=== PATIENT | male | born 1975 | race Caucasian/White ===

== ENCOUNTER → 2020-02-10 10:07 | Outpatient (REF) | payer OTHER, SELFPAY ==
--- NOTE | 2020-02-10 10:10 | ECG_ITS ---
Hook-up date: 2020-02-10 11:01:00 Duration: 47:59:00 Test Indications: BRADYCARDIA Medications: 95356 QRS complexes 5 Ventricular ectopics which represent <1 % of total QRS comp. 37 Supraventricular ectopics which represent <1 % of total QRS comp. * Paced QRS complexs which represent % of total QRS comp. VENTRICULAR ECTOPY 5 Isolated 0 Bigeminal Cycles 0 Couplets 0 Runs 0 Beats in Runs * Beats LONGEST at * BPM at :: -- * Beats FASTEST at * BPM at :: -- SUPRAVENTRICULAR ECTOPY 13 Isolated 4 Couplets 1 Runs 16 Beats in Runs 16 Beats LONGEST at 83 BPM at 07:35:14 2020-02-11 16 Beats FASTEST at 83 BPM at 07:35:14 2020-02-11 HEART RATES 32 MIN at 14:43:25 2020-02-10 43 AVG 90 MAX at 16:44:43 2020-02-10 LONGEST RR 2.1200 secs at 08:15:30 2020-02-11 S-T LEVELS Channel 1 - 128 mm at 11:01:00 2020-02-10 - 128 mm at 11:01:00 2020-02-10 Channel 2 - 128 mm at 11:01:00 2020-02-10 - 128 mm at 11:01:00 2020-02-10 Channel 3 - 128 mm at 03:02:01 -- - 128 mm at 03:02:01 Underlying rhythm is sinus bradycardia; Average ventricular rate 43/min; range 32-90/min; About 97% of the time, ventricular rate >100/mi; Occasional supraventricular/ventricular ectopy, but very low burden; Patient did not report any symptoms in the diary Referred By: Mj Jarrell Overread By: MAGED LEZAMA
--- NOTE | 2020-02-10 10:10 | CA_ITS ---
Transthoracic Echocardiogram Patient (Last, First, Middle): Lucius Pearson, Gender: Male Date of : 1975 Age: 44 Procedure Date: 02/10/2020 Procedure Type: Transthoracic Echocardiogram Location: OP Height: 190.5 cm Weight: 90.72 kg BSA: 2.19 m2 Heart Rate: bpm BP: 104 / 54 mmHg Recycling Operator: Referring MD: Mj Jarrell [facility] Symptoms: R00.1 - Bradycardia, unspecified Study Quality: Good ECG Rhythm: Sinus Conclusions: - The left ventricular systolic function is normal. The visually estimated ejection fraction is between 60-65%. - No obvious valvular pathology seen on this study. Findings Left Ventricle Normal left ventricular cavity size. There is normal left ventricular wall thickness. The left ventricular systolic function is normal. The visually estimated ejection fraction is between 60-65%. There is no evidence of regional wall motion abnormalities. Diastolic function is normal for age. Right Ventricle Normal right ventricular cavity size and systolic function. Atria The left atrium is mildly dilated. The right atrium is normal in size. Aortic Valve There is a normal trileaflet aortic valve. There is no aortic valve stenosis. There is no aortic valve regurgitation. Mitral Valve The mitral valve appears normal. There is trace mitral valve regurgitation. There is no mitral valve stenosis. Pulmonic Valve The pulmonic valve was not well visualized. Tricuspid Valve Normal tricuspid valve structure. There is trace tricuspid valve regurgitation. The pulmonary artery systolic pressure is normal. Great Vessels The aortic annulus, sinuses of valsalva, and asc aorta are normal in size. Venous The inferior vena cava is normal in size and collapses greater than 50% with inspiration. Pericardium/Pleural There is no evidence of pericardial effusion. Prior Study Comparison No prior study available for comparison. Recommendations, Care & Conclusions No obvious valvular pathology seen on this study. Measurements 2D Linear Measurements RVIDd: 3.55 RVIDd Index: 1.62 IVSd: 0.81 0.6-0.9/0.6-1.0 cm LVIDd: 6.45 3.9-5.3/4.2-5.9 cm LVIDd Index: 2.95 2.4-3.2/2.2-3.1 cm/m2 LVIDs: 4.27 2.0-3.6 cm LVPWd: 0.98 0.7-1.1 cm Ao Root: 3.40 2.1-3.5 cm LA Diam: 4.70 2.7-3.8/3.0-4.0 cm LAIDs Index: 2.15 1.5-2.3 cm/m2 LV Mass: 303.21 67-162/88-224 g LV Mass Index: 138.45 43-95/49-115 g/m2 LVOT Diam: 2.30 3.0+(-)1.3 cm 2D Systolic Function EF 4C: 62.90 >55% EF 2C: 64.80 >55% EF BiP: 62.90 >55% Mitral Valve MV Pk E: 0.76 MV PK A: 0.75 MV Decel Time: 300.00 E/A: 1.00 E'Lateral: 14.60 E'Medial: 7.29 E/E' Med: 10.40 E/E' Lat: 5.20 MR Alias Abdon: 0.36 MR RAD: 0.70 Aortic Valve AoV Pk Abdon: 1.57 AoV Mn Abdon: 1.17 AoV VTI: 0.41 AoV Pk Grad: 10.00 Aov Mn Grad: 6.00 [place] Cont.VTI: 2.69 LVOT LVOT Pk Abdon: 1.12 LVOT Mn Abdon: 0.69 LVOT VTI: 0.27 LVOT Pk Grad: 5.00 LVOT Mn Grad: 2.00 LVOT Diam: 2.30 LVOT Area: 4.15 Diastolic Function MV Pk E: 0.76 MV Pk A: 0.75 E/A: 1.00 E'Medial: 7.29 E/E' Med: 10.40 E' Laterial: 14.60 E/E' Lat: 5.20 Tricuspid Valve TR Pk Abdon: 2.62 TR Pk Grad: 27.00 RA Press: 3.00 RVSP: 30.00 Great Vessels Aorta Ao Root-2D: 3.40 2.0-3.7 cm Ao Asc: 3.60 2.1-3.4 cm Ao Arch: 2.00 Updated in Other Vendor System with Status of Final Josiah Avilez MD electronically signed on 02/12/2020 1:45:03 PM with status of Final
== END ==
LOC: HO.CARD 10:07
PROVIDERS: PCP Nurse Practitioner Family; Visit Provider Nurse Practitioner Family
DX: R00.1 Bradycardia, unspecified (principal)
CPT/HCPCS: 93225; 93226; 93306

== ENCOUNTER 2020-03-17 08:01 | Outpatient (REF) | payer OTHER, SELFPAY ==
--- NOTE | 2020-03-17 08:34 | XR_ITS ---
EXAMINATION: XR SHOULDER, LEFT XR SHOULDER, RIGHT CLINICAL INFORMATION: Shoulder pain. COMPARISON: 11/10/2018 TECHNIQUE: 4 views of each shoulder. FINDINGS: Left shoulder: No fracture or dislocation. The glenohumeral joint is well aligned. The joint space is mildly narrowed inferiorly. This is unchanged. The acromioclavicular joint positioning is unchanged from prior. Widening of the joint space is noted, which may be from prior intervention. The visualized lung is clear. The visualized ribs are intact. Right shoulder: No fracture or dislocation. The glenohumeral joint is well aligned with the joint space maintained. The acromioclavicular joint is intact. The visualized lung is clear. The visualized ribs are intact. XR/XR shoulder RT min 2V IMPRESSION: No change from prior. Mild joint space narrowing at the left glenohumeral joint, unchanged. Normal appearance of the right shoulder.
--- NOTE | 2020-03-17 08:34 | XR_ITS ---
EXAMINATION: XR SHOULDER, LEFT XR SHOULDER, RIGHT CLINICAL INFORMATION: Shoulder pain. COMPARISON: 11/10/2018 TECHNIQUE: 4 views of each shoulder. FINDINGS: Left shoulder: No fracture or dislocation. The glenohumeral joint is well aligned. The joint space is mildly narrowed inferiorly. This is unchanged. The acromioclavicular joint positioning is unchanged from prior. Widening of the joint space is noted, which may be from prior intervention. The visualized lung is clear. The visualized ribs are intact. Right shoulder: No fracture or dislocation. The glenohumeral joint is well aligned with the joint space maintained. The acromioclavicular joint is intact. The visualized lung is clear. The visualized ribs are intact. XR/XR shoulder LT min 2V IMPRESSION: No change from prior. Mild joint space narrowing at the left glenohumeral joint, unchanged. Normal appearance of the right shoulder.
[2020-03-17 12:03] LABS: Alanine Aminotransferase 38 U/L (0-40); Albumin Level 4.6 g/dL (3.5-5.0); Alkaline Phosphatase 61 U/L (39-117); Anion Gap 12 (12-20); Aspartate Amino Transferase 56 U/L (5-37); Bilirubin Total 0.8 mg/dL (0.0-1.0); Blood Urea Nitrogen 21 mg/dL (9-16); Calcium 8.9 mg/dL (8.4-10.2); Carbon Dioxide 23 mmol/L (22-29); Chloride 108 mmol/L (96-108); Cholesterol 170 mg/dL; Estimated Glomerular Filt Rate > 60; Glucose Fasting 90 mg/dL (60-99); HDL Cholesterol 59 mg/dL; LDL Cholesterol Calculated 101 mg/dl; Potassium 4.7 mmol/L (3.3-5.1); Sodium 138 mmol/L (135-145); Total Protein 7.3 g/dL (6.5-8.0); Triglycerides 51 mg/dL
[2020-03-17 12:25] LABS: TSH reflex Free T4 1.16 uIU/mL (0.32-4.0)
== END 2020-03-17 08:02 | disposition home or self-care (01) ==
LOC: HO.HMGCX 08:01
PROVIDERS: PCP Nurse Practitioner Family; Visit Provider Nurse Practitioner Family
DX: Z00.00 Encounter for general adult medical examination without abnormal findings (principal); G89.29 Other chronic pain; M25.512 Pain in left shoulder; M25.511 Pain in right shoulder
CPT/HCPCS: 36415; 73030; 80053; 80061; 84443

== ENCOUNTER → 2020-11-14 13:57 | Outpatient (BNVA) | payer OTHER, SELFPAY | PROVIDERS: Visit Provider Orthopaedic Surgery | DX: M67.911 Unspecified disorder of synovium and tendon, right shoulder (principal) | CPT/HCPCS: 99212 ==

== ENCOUNTER 2021-01-18 09:03 | Outpatient (REF) | payer OTHER, SELFPAY ==
[2021-01-18 10:37] LABS: Hematocrit 46.3 % (42.0-52.0); Hemoglobin 15.3 g/dl (14.0-18.0); Mean Corpuscular Hemoglobin 31.7 pg (27.0-33.0); Mean Corpuscular Volume 95.9 fL (80.0-98.0); Mean Platelet Volume 10.6 fL (9.4-12.4); Platelet Count 214 X10*3/uL (160-400); Red Blood Count 4.83 X10*6/uL (4.60-5.80); Red Cell Distribution Width 12.3 % (11.0-16.0); White Blood Count 6.2 X10*3/uL (4.8-10.8)
[2021-01-18 11:06] LABS: Alanine Aminotransferase 13 U/L (0-40); Albumin Level 4.5 g/dL (3.5-5.0); Alkaline Phosphatase 70 U/L (39-117); Anion Gap 12 (12-20); Aspartate Amino Transferase 18 U/L (5-37); Bilirubin Total 0.5 mg/dL (0.0-1.0); Blood Urea Nitrogen 17 mg/dL (9-16); Calcium 9.8 mg/dL (8.4-10.2); Carbon Dioxide 27 mmol/L (22-29); Chloride 108 mmol/L (96-108); Estimated Glomerular Filt Rate > 60; Glucose Random 67 mg/dL (60-115); Potassium 4.5 mmol/L (3.3-5.1); Sodium 142 mmol/L (135-145); Total Protein 7.4 g/dL (6.5-8.0)
[2021-01-18 11:22] LABS: HBc Num1 0.09 S/CO (0.00-0.79); HBsAGNum1 0.23 S/CO (0.00-0.99); Hepatitis B Core Antibody Nonreactive (Nonreactive); Hepatitis B Surface Antigen Negative (Negative); ~HepC Num1 0.11 S/CO (0.00-0.79); ~Hepatitis C Antibody Nonreactive (Nonreactive)
[2021-01-18 12:29] LABS: HBS Num1 > 1000.00 mIU/mL (0-7.99); Hepatitis A Antibody IgM 0.37 Index (0-0.79); ~Hepatitis A Antibody IgM Nonreactive (Nonreactive); ~Hepatitis B Surface Antibody REACTIVE (Nonreactive)
== END 2021-01-18 09:04 | disposition home or self-care (01) ==
LOC: HO.LAB 09:03
PROVIDERS: PCP Nurse Practitioner Family; Referring Provider Nurse Practitioner Family; Visit Provider Nurse Practitioner Family
DX: R74.8 Abnormal levels of other serum enzymes (principal); K62.5 Hemorrhage of anus and rectum; K59.00 Constipation, unspecified; Z12.11 Encounter for screening for malignant neoplasm of colon
CPT/HCPCS: 36415; 80053; 85027; 86704; 86706; 86709; 86803; 87340; 99202

== ENCOUNTER 2021-10-21 12:50 | Outpatient (REF) | payer OTHER, SELFPAY ==
--- NOTE | ~2021-10-21 | XR_ITS ---
EXAMINATION: CHEST 4 VIEWS AND LEFT RIBS 6 VIEWS CLINICAL INFORMATION: Cough, pain status post trauma COMPARISON: None TECHNIQUE: As above FINDINGS: No pneumothorax parenchymal pleural disease. No retrosternal abnormality. Heart and mediastinum normal. Imaging of the left ribs demonstrate no acute displaced fracture definitively. Skinfolds noted. XR/XR ribs LT 2V IMPRESSION: No definite deformity. No infiltrate.
--- NOTE | ~2021-10-21 | XR_ITS ---
EXAMINATION: CHEST 4 VIEWS AND LEFT RIBS 6 VIEWS CLINICAL INFORMATION: Cough, pain status post trauma COMPARISON: None TECHNIQUE: As above FINDINGS: No pneumothorax parenchymal pleural disease. No retrosternal abnormality. Heart and mediastinum normal. Imaging of the left ribs demonstrate no acute displaced fracture definitively. Skinfolds noted. XR/XR chest 2V IMPRESSION: No definite deformity. No infiltrate.
== END 2021-10-21 12:51 | disposition home or self-care (01) ==
LOC: HO.HMGCX 12:50
PROVIDERS: Visit Provider Physician Assistant Medical
DX: R07.89 Other chest pain (principal); R05.9 Cough, unspecified
CPT/HCPCS: 71046; 71100

== ENCOUNTER 2021-10-21 14:50 | Observation (INO) | payer OTHER, SELFPAY ==
--- NOTE | ~2021-10-21 | CT_ITS ---
EXAMINATION: CT ABDOMEN AND PELVIS WITHOUT CONTRAST CLINICAL INFORMATION: Left flank left lower quadrant and hip pain. Rule out abscess. COMPARISON: None TECHNIQUE: Multidetector volumetric imaging was performed from the superior aspect of the liver through the pubic symphysis. Sagittal and coronal reformatted images were obtained on the technologist's workstation. This CT examination was performed using dose optimization techniques as appropriate, variously including the following: *Automated exposure control *Adjustment of mA and/or kV according to patient size (this includes techniques or standardized protocols for targeted exams where dose is matched to indication/reason for exam; i.e. extremities or head) *Use of iterative reconstruction technique DLP: 632 mGy-cm FINDINGS: LUNG BASES: Small sub-4 mm left basilar calcified granuloma. Mild bibasilar subsegmental atelectasis. Small fat-containing right-sided Bochdalek hernia. LIVER, GALLBLADDER, AND BILIARY TREE: 1 cm low-density cyst in the posterior segment right liver lobe. Normal hepatic attenuation. No other liver lesion. No biliary ductal dilation. The gallbladder is unremarkable with no evidence of radiopaque gallstones, gallbladder wall thickening, or obvious pericholecystic inflammatory changes. PANCREAS: Unremarkable. SPLEEN: Unremarkable. ADRENAL GLANDS: Unremarkable. KIDNEYS AND URETERS: The kidneys are normal in size, shape, and attenuation. No hydronephrosis, hydroureter, or calculi seen. No perinephric stranding. BLADDER: Unremarkable. GASTROINTESTINAL TRACT: Moderate amount of formed stool seen throughout the colon. Small hiatal hernia. No dilated bowel loops. No bowel wall thickening. Normal appendix. Inflamed epiploic fat adjacent to the distal sigmoid/proximal rectum on series 3-66 series 5-73 compatible with epiploic appendagitis. No ascites or free air. ABDOMINAL WALL: No significant hernia is appreciated. There is a subcutaneous fluid collection with mild subcutaneous edema along the lateral aspect of the left pelvis measuring approximately 1.7 x 4.3 x 4.3 cm in size. No gas within the collection. Finding seen on axial image 52, coronal image 55. LYMPH NODES: No lymphadenopathy. VASCULAR: Normal caliber abdominal aorta. Mild atherosclerotic vascular calcifications. PELVIC VISCERA: Unremarkable. OSSEOUS STRUCTURES: No acute fracture or suspicious osseous lesion. Multilevel degenerative disc disease most advanced at L4-L5 and T11-T12. CT/CT abdomen pelvis wo IV con IMPRESSION: 1. Subcutaneous fluid collection overlying the left lateral pelvis which may be either sterile or infected and measures 4.3 x 1.7 x 4.3 cm in size. 2. Findings compatible with epiploic appendagitis adjacent to the distal sigmoid colon/proximal rectum. Fleischner guidelines were followed.
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
[2021-10-21 14:53] VITALS: BP 121/61; PULSE 58; RESP 19; TEMP 36.6; O2SAT 98; BMI 25.0
[2021-10-21 19:15] VITALS: BP 129/87; PULSE 49; RESP 16; TEMP 36.2; O2SAT 98
--- NOTE | 2021-10-21 20:59 | ECG_ITS ---
Test Reason : [employer] Blood Pressure : / mmHG Vent. Rate : 043 BPM Atrial Rate : 043 BPM P-R Int : 134 ms QRS Dur : 088 ms QT Int : 452 ms P-R-T Axes : 057 -09 058 degrees QTc Int : 381 ms Marked sinus bradycardia Abnormal ECG No previous ECGs available Referred By: Elina Bramibla Electronically Signed By:JAMIL LIM
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
--- NOTE | 2021-10-21 21:50 | PC.NURSE ---
Assumed care of pt. at 2129. Pt. c/o pain in chest area with worsening immediately following cat scan. Pt. resting on side in bed.
[2021-10-21] MEDS: Sulfamethox/Trimeth 800/160 TABLET 1 TAB PO (21:52)
[2021-10-21 22:21] LABS: MANUAL DIFF FLAG NO
[2021-10-21 22:22] LABS: Basophils Percent Auto 0.3 % (0-2); Eosinophils Absolute Auto 0.2 X10*3/uL (0.0-0.4); Eosinophils Percent Auto 2.8 % (0-4); Hematocrit 40.4 % (42.0-52.0); Imm Gran Abs Auto 0.02 X10*3/uL (0.00-0.03); Imm Gran Pct Auto 0.3 % (0.0-0.4); Lymphocytes Percent Auto 30.7 % (20-40); Mean Corpuscular HGB Conc 34.7 g/dl (31.0-36.0); Mean Corpuscular Hemoglobin 31.5 pg (27.0-33.0); Mean Platelet Volume 9.5 fL (9.4-12.4); Monocytes Absolute Auto 0.4 X10*3/uL (0.1-1.2); Monocytes Percent Auto 6.1 % (2-11); Neutrophils Absolute Auto 3.9 x10*3/uL (2.0-8.3); Neutrophils Percent Auto 59.8 % (45-73); Platelet Count 225 X10*3/uL (160-400); Red Blood Count 4.44 X10*6/uL (4.60-5.80); White Blood Count 6.4 X10*3/uL (4.8-10.8)
[2021-10-21 22:34] LABS: Lactic Acid 0.9 mmol/L (0.5-2.0)
[2021-10-21 22:40] LABS: Alanine Aminotransferase 18 U/L (0-40); Albumin Level 4.5 g/dL (3.5-5.0); Alkaline Phosphatase 83 U/L (39-117); Anion Gap 14 (12-20); Aspartate Amino Transferase 21 U/L (5-37); Bilirubin Direct 0.3 mg/dL (0.0-0.5); Bilirubin Total 0.8 mg/dL (0.0-1.0); Blood Urea Nitrogen 14 mg/dL (9-16); Calcium 9.5 mg/dL (8.4-10.2); Carbon Dioxide 26 mmol/L (22-29); Chloride 103 mmol/L (96-108); Creatinine Clr Calc Pharmacy 105.8; Estimated Glomerular Filt Rate > 60; Glucose Random 82 mg/dL (60-115); Potassium 4.2 mmol/L (3.3-5.1); Sodium 139 mmol/L (135-145); Total Protein 7.6 g/dL (6.5-8.0)
[2021-10-21 23:33] VITALS: RESP 16
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
[2021-10-22] VITALS (7 sets, daily range): BP systolic 129–137; BP diastolic 67–88; PULSE 38–45; RESP 14–19; TEMP 36.2–36.9; O2SAT 96–99
--- NOTE | 2021-10-22 | ECG_ITS ---
Test Reason : CP Blood Pressure : / mmHG Vent. Rate : 043 BPM Atrial Rate : 043 BPM P-R Int : 136 ms QRS Dur : 086 ms QT Int : 470 ms P-R-T Axes : 048 -03 040 degrees QTc Int : 397 ms Marked sinus bradycardia Abnormal ECG When compared with ECG of 21-OCT-2021 21:34, No significant change was found Referred By: Cyndee Nguyen Electronically Signed By:JAMIL LIM
[2021-10-22] MEDS: Ketorolac Tromethamine 30 MG/ML VIAL IVPUSH (00:11)
[2021-10-22] MEDS: ceFAZolin Sodium/Dextrose,Iso 2 GM/50 ML PIGGYBACK IV ×4 (00:23→23:17)
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
[2021-10-22 01:05] LABS: COVID-19 Test Negative (Negative); IDNOW Serial# 55D5AD1C
[2021-10-22] MEDS: oxyCODONE HCl Immed Release 5 MG TABLET PO ×4 (01:17→18:19)
--- NOTE | 2021-10-22 01:18 | PC.NURSE ---
Vancomycin not available in the pyxis. Call put into pharmacy.
--- NOTE | 2021-10-22 01:33 | PC.NURSE ---
Vancomycin not available in the dose ordered. Dr. Brambila is ordering in a new dose that is available. Administration is delayed due to the unavailability.
[2021-10-22] MEDS: vancomycin HCL 1,500 MG in 0.9 % Sodium Chloride 500 ML 333.33 MG IV (01:51)
[2021-10-22] MEDS: 0.9 % Sodium Chloride Flush 3 ML SYRINGE IVFLUSH ×3 (01:58→20:39)
--- NOTE | 2021-10-22 01:59 | PC.NURSE ---
Pt. alert and oriented, awake in bed. States he usually takes melatonin for sleep. Due to the late hour, he will try and sleep without it.
--- NOTE | 2021-10-22 04:46 | PC.NURSE ---
Pt. was provided with a sandwich and cheesestick as he was c/o hunger as he hadn't eaten all day. Per hospitalist, pt. not NPO and able to eat. Regular diet is ordered.
--- NOTE | 2021-10-22 04:47 | PC.NURSE ---
Wound edges traced with wound pen. Wound is about 3 by 5 cm with reddened edges. Areas of yellowish and blackish scab formation. Wound is not draining at this time.
--- NOTE | 2021-10-22 06:32 | PC.NURSE ---
Pt. sleeping in room. No temperature noted.
[2021-10-22 06:43] LABS: MANUAL DIFF FLAG NO
[2021-10-22 06:52] LABS: Basophils Percent Auto 0.5 % (0-2); Eosinophils Absolute Auto 0.2 X10*3/uL (0.0-0.4); Eosinophils Percent Auto 3.6 % (0-4); Hematocrit 39.1 % (42.0-52.0); Hemoglobin 13.5 g/dl (14.0-18.0); Imm Gran Abs Auto 0.01 X10*3/uL (0.00-0.03); Imm Gran Pct Auto 0.2 % (0.0-0.4); Lymphocytes Absolute Auto 2.3 X10*3/uL (1.2-4.9); Lymphocytes Percent Auto 41.1 % (20-40); Mean Corpuscular HGB Conc 34.5 g/dl (31.0-36.0); Mean Corpuscular Volume 89.9 fL (80.0-98.0); Mean Platelet Volume 9.5 fL (9.4-12.4); Monocytes Absolute Auto 0.5 X10*3/uL (0.1-1.2); Monocytes Percent Auto 8.4 % (2-11); Neutrophils Absolute Auto 2.6 x10*3/uL (2.0-8.3); Neutrophils Percent Auto 46.2 % (45-73); Platelet Count 201 X10*3/uL (160-400); Red Blood Count 4.35 X10*6/uL (4.60-5.80); Red Cell Distribution Width 12.8 % (11.0-16.0); White Blood Count 5.6 X10*3/uL (4.8-10.8)
[2021-10-22 07:19] LABS: Anion Gap 14 (12-20); Blood Urea Nitrogen 17 mg/dL (9-16); Calcium 8.9 mg/dL (8.4-10.2); Carbon Dioxide 23 mmol/L (22-29); Chloride 107 mmol/L (96-108); Creatinine Clr Calc Pharmacy 114.8; Estimated Glomerular Filt Rate > 60; Glucose Random 81 mg/dL (60-115); Sodium 140 mmol/L (135-145)
--- NOTE | 2021-10-22 07:30 | PHA.MEDREC ---
Pharmacy Consult ? Medication Reconciliation Pharmacy has completed the medication reconciliation.
[2021-10-22] MEDS: Acetaminophen 325 MG TABLET 650 MG PO ×3 (07:51→18:19)
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
[2021-10-22] MEDS: Lidocaine 4 % Patch ADH..PATCH 1 PATCH TRANSDERMA (11:31)
[2021-10-22] MEDS: Ketorolac Tromethamine 15 MG/ML VIAL IVPUSH ×2 (11:32→20:49)
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
--- NOTE | 2021-10-22 12:25 | PC.NURSE ---
HR on monitor low as 35, VSS, asymptomatic, pt reports has hx of bradycardia. EKG done, reported to Patrick KINCAID. Lowest parameters on tele 40 bpm per Patrick KINCAID.
--- NOTE | 2021-10-22 16:36 | PC.NURSE ---
Sinus pause on monitor reported by radiographer technologist - forwarded to Patrick KINCAID - pacer pads placed, see new orders
[2021-10-22 17:26] LABS: TSH reflex Free T4 3.21 uIU/mL (0.32-4.0)
[2021-10-22] MEDS: OLANZapine 10 MG TABLET PO (20:39)
[2021-10-22] MEDS: clonazePAM 0.5 MG TABLET PO (20:39)
[2021-10-23 03:12] VITALS: BP 133/77; PULSE 45; RESP 18; TEMP 36.6; O2SAT 97
[2021-10-23 06:57] VITALS: BP 138/62; PULSE 35; RESP 16; TEMP 36.6; O2SAT 98
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
[2021-10-23] MEDS: ceFAZolin Sodium/Dextrose,Iso 2 GM/50 ML PIGGYBACK IV ×2 (08:23→15:42)
[2021-10-23] MEDS: 0.9 % Sodium Chloride Flush 3 ML SYRINGE IVFLUSH ×2 (08:29→15:43)
--- NOTE | 2021-10-23 09:52 | P.PNIM_ITS ---
Subjective Subjective Date of Service: 10/23/21 Review of Systems Follow-up hematoma Still with some pain, some bloody drainage Lots rib pain especially regarding Physical Exam Vital Signs: Vital Signs: Last Vital Signs Temp 98 F 10/23/21 06:57 Pulse 35 L 10/23/21 06:57 Resp 16 10/23/21 06:57 BP 138/62 10/23/21 06:57 Pulse Ox 98 10/23/21 06:57 O2 Del Method 10/23/21 06:57 BMI result Body Mass Index 25.0 Appearing in no acute distress lung sounds are clear to auscultation heart regular rate rhythm, clear S1, S2 positive bowel sounds, abdomen is soft, nontender neuro patient is alert x3, no focal deficits Objective Data Active Medications Acetaminophen (Acetaminophen 325 Mg Tablet) 650 mg PO Q6H PRN PRN Reason: Pain, Mild (Pain Scale 1-3) Last Admin: 10/22/21 18:19 Dose: 650 mg Documented By: DEJON Atropine Sulfate (Atropine Sulfate 1 Mg/Ml Vial) 0.5 mg IVPUSH ONCE PRN PRN Reason: symptomatic bradycardia Clonazepam (Clonazepam 1 Mg Tablet) 1 mg PO TID PRN PRN Reason: Anxiety Clonazepam (Clonazepam 0.5 Mg Tablet) 0.5 mg PO BEDTIME [facility] Last Admin: 10/22/21 20:39 Dose: 0.5 mg Documented By: CASTILLO Docusate Sodium (Docusate Sodium 100 Mg Capsule) 100 mg PO DAILY PRN PRN Reason: Constipation Cefazolin Sodium/Dextrose (Ancef) 2 gm in 50 mls @ 100 mls/hr IV Q8H [facility] Last Infusion: 10/23/21 08:56 Dose: 0 mls/hr Documented By: SONALI Ketorolac Tromethamine (Ketorolac Tromethamine 15 Mg/Ml Vial) 15 mg IVPUSH Q6H PRN PRN Reason: Pain, Moderate (Pain Scale 4-6 Last Admin: 10/22/21 20:49 Dose: 15 mg Documented By: CASTILLO Lidocaine (Lidocaine 4 % Patch Adh..Patch) 1 patch TRANSDERMA DAILY [facility]; Protocol Last Admin: 10/23/21 08:31 Dose: Not Given Documented By: SONALI Non-Admin Reason: Patient Refused Olanzapine (Olanzapine 10 Mg Tablet) 10 mg PO BEDTIME [facility] Last Admin: 10/22/21 20:39 Dose: 10 mg Documented By: CASTILLO Ondansetron HCl (Ondansetron Hcl 4 Mg/2 Ml Vial) 4 mg IVPUSH Q8H PRN PRN Reason: Nausea and Vomiting Oxycodone HCl (Oxycodone Hcl Immed Release 5 Mg Tablet) 5 mg PO Q6H PRN PRN Reason: Pain, Severe (Pain Scale 7-10) Last Admin: 10/22/21 18:19 Dose: 5 mg Documented By: DEJON Pharmacy Consult (Consult Rx Vancomycin Dosing) 1 each MISCELLANE DAILY PRN PRN Reason: Consult order Pharmacy Consult (Consult Rx Vancomycin Dosing) 1 each MISCELLANE DAILY PRN PRN Reason: Consult order Sodium Chloride (0.9 % Sodium Chloride Flush 3 Ml Syringe) [facility] Last Admin: 10/23/21 08:29 Dose: 3 ml Documented By: SONALI Labs CBC & Chem 7: 10/22/21 06:20 10/22/21 06:20 Labs: Laboratory Results - last 24 hr 10/22/21 06:20 TSH 3.21 Microbiology Microbiology Results: Microbiology 10/22/21 10:00 Gram Stain - Final Flank Routine Culture - Preliminary Culture in progress. 10/21/21 22:14 Blood Culture - Preliminary Blood - Venous No growth after 24 hours. 10/21/21 22:14 Blood Culture - Preliminary Blood - Venous No growth after 24 hours. Assessment and Plan Plan 46-year-old male with no significant past medical history who presents to the hospital with complaints of falling from opened and developing an abscess on his left hip that is have progressively become more painful over the last few days Left hip fluid collection with overlying cellulitis More likely abscess rather than infection as CT showed 4 x 4 cm fluid collection Drained/I&D Continue capsule for now Blood cultures negative after 24 hours Routine wound culture still pending Left chest wall pain. Secondary to rib fractures reproducible and worse with movement lidoderm patch, symptomatic care epiploic appendagitis pain control Sinus bradycardia. Patient reports chronic outpatient notes indicate bradycardia has had outpatient workup including echo and holter monitor for bradycardia in 2019 asymptomatic EKG with sinus bradycardia, no heart block monitor on tele DVT prophylaxis:? Early ambulation Attending Dr. Thrasher Full code Requires ongoing inpatient hospitalization for management of left hip fluid collection with associated cellulitis and need for surgical evaluation, IV antibiotics Quality Stroke Does the patient have a stroke diagnosis?: No VTE Prior VTE?: No VTE Risk Level:: Medical - low VTE Device Contraindication: Treatment Not Indicated VTE Drug Contraindication: Treatment Not Indicated
[2021-10-23] MEDS: Ketorolac Tromethamine 15 MG/ML VIAL IVPUSH ×2 (10:25→18:01)
[2021-10-23 11:16] VITALS: BP 120/76; PULSE 42; RESP 16; TEMP 36.6; O2SAT 97
[2021-10-23] MEDS: clonazePAM 1 MG TABLET PO (13:03)
[2021-10-23 13:27] LABS: Lyme Abs Screen <0.90 index
[2021-10-23 15:59] VITALS: BP 122/77; PULSE 43; RESP 20; TEMP 36.4; O2SAT 97
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
== END 2021-10-23 20:11 | disposition home or self-care (01) ==
LOC: HO.ED 23:49 → HO.EDOVER 23:57 → HO.S3 10-22 07:00
PROVIDERS: Physician Assistant Medical; Admitting Provider Internal Medicine; Emergency Provider Emergency Medicine; PCP Nurse Practitioner Family; Visit Provider Nurse Practitioner Acute Care
DX: L02.91 Cutaneous abscess, unspecified (principal); L03.90 Cellulitis, unspecified; K63.89 Other specified diseases of intestine; R00.1 Bradycardia, unspecified; R07.89 Other chest pain; R10.32 Left lower quadrant pain; Z20.822 Contact with and (suspected) exposure to COVID-19; Z79.899 Other long term (current) drug therapy
CPT/HCPCS: 10060; 36415; 71101; 74176; 80048; 80076; 83605; 84443; 84484; 85025; 86617; 86618; 87040; 87071; 87077; 87186; 87205; 87635; 93005; 96365; 96375; 96376; 99218; 99285; J0690; J1885; J3370

== ENCOUNTER → 2021-11-17 10:22 | Outpatient (REF) | payer OTHER, SELFPAY ==
--- NOTE | 2021-11-17 10:26 | CA_ITS ---
Acquisition Time: 2021-11-17 10:41:31 Total Exercise Time: 00:12:00 Test Indications: BRADYCARDIA Medications: Protocol: CARMEN Max HR: 150 BPM 87% of Pred: 172 BPM Max BP: 160/084 mmHG Max Work Load: 13.4 METS Exercise stress test with exercise 12 min of Carmen protocol, achieving 87% MPHR, with mild to moderate sob and leg fatigue with request to stop, no chest discomfort, with isolated PVC, with normotensive and normal chronotropic response to exercise ( gradual rise to peak heart rate, achieving 85% MPHR at 11 min 50 sec of walking) without EKG changes meeting criteria for ischemia. In recovery his heart rate returned to 30% MPHR. Baseline EKG prior to start of exercise showed sinus bradycardia rate 42 b/min, 24% MPHR, Test reviewed with Dr Gongora Referred By: Sekou Gongora Overread By: FITO CAMARENA
== END ==
LOC: HO.CARD 10:22
PROVIDERS: Visit Provider Internal Medicine Cardiovascular Disease
DX: R00.1 Bradycardia, unspecified (principal)
CPT/HCPCS: 93017

== ENCOUNTER 2022-11-21 15:07 | Outpatient (AMB) | payer OTHER, SELFPAY ==
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
[2022-11-21 15:12] VITALS: BP 110/82; PULSE 46; O2SAT 96; BMI 28.2
[2022-11-21 16:56] VITALS: PULSE 62
== END 2022-11-21 15:45 | disposition home or self-care (01) ==
PROVIDERS: PCP Nurse Practitioner Family; Visit Provider Nurse Practitioner Family
DX: R53.83 Other fatigue (principal); T14.8XXA Other injury of unspecified body region, initial encounter; S01.91XA Laceration without foreign body of unspecified part of head, initial encounter
CPT/HCPCS: 99213

== ENCOUNTER 2022-11-29 16:37 | Outpatient (AMB) | payer OTHER, SELFPAY ==
--- NOTE | 2022-11-29 16:44 | MHC.PC.OV ---
Vital Signs 11/29/22 16:49 Weight 234 lb BP 110/70 Blood Pressure Location Lt brachial Position Sitting Pulse 42 L Pulse Source Pulse Oximeter Pulse Oximetry (%) 97 Oxygen Delivery Method Room Air Intake Visit Reasons: stitch removal Allergies No Known Allergies Allergy (Verified 11/29/22 16:49) Tobacco use date assessed: 11/21/22 HPI stitch removal HPI Details suture removal to upper right forehead. 10 sutures visible. pt denies any s/s of infection. Tetanus UTD. PFSH Medical History Epiploic appendagitis GI bleed Bradycardia Physical exam Surgical History History of tonsillectomy Family History Father No problems noted. Mother Cancer Maternal Grandmother Cancer Maternal Grandfather Cancer Son No problems noted. Son No problems noted. Daughter No problems noted. Social History Housing: House Alcohol intake: current Alcohol intake frequency: a few times a week Patient Tobacco Use Status: Former Tobacco user e-Cigarette/Vaping Use: Currently Using Second Hand Smoke Exposure: No Current occupational status: disabled Cognitive needs: No Hearing needs: No Vision needs: No Physical exam (Primary Care) Vital Signs: Last Vital Signs Pulse 42 L 11/29/22 16:49 BP 110/70 11/29/22 16:49 Pulse Ox 97 11/29/22 16:49 Oxygen Delivery Method Room Air 11/29/22 16:49 Tobacco/Smoking Status: Tobacco use Status Tobacco use date assessed 11/21/22 11/29/22 16:45 Patient Tobacco Use Status Former Tobacco user 11/29/22 16:45 e-Cigarette/Vaping Use Currently Using 11/29/22 16:45 Resp Effort & Inspection: normal respiratory effort Auscultation: clear to auscultation bilaterally Cardio Rate: regular rate Rhythm: regular rhythm Heart sounds: S1 normal heart sound present, S2 normal heart sound present and Murmur heart sound present Skin Other: superior to right eyebrow (forehead), 10 sutures easily removed, pt tolerated procedure well. no signs of infection. Psych Appearance: grossly normal Mental Status: mental status grossly normal Speech and movement: Normal speech and movement present Affect: normal affect Insight: Good insight present (Psych) Judgement: Good judgement present (Psych) Assessment and Plan Assessment & Plan (1) Laceration of head: Code(s): S01.91XA - Laceration without foreign body of unspecified part of head, initial encounter (2) Visit for suture removal: Code(s): Z48.02 - Encounter for removal of sutures Coding Level of Care Code Est Pt Level 3 (73835) Diagnoses Laceration of head S01.91XA Visit for suture removal Z48.02
[2022-11-29 16:49] VITALS: BP 110/70; PULSE 42; O2SAT 97
== END 2022-11-29 17:29 | disposition home or self-care (01) ==
PROVIDERS: PCP Nurse Practitioner Family; Visit Provider Nurse Practitioner Family
DX: S01.91XA Laceration without foreign body of unspecified part of head, initial encounter (principal); Z48.02 Encounter for removal of sutures
CPT/HCPCS: 99213

== ENCOUNTER 2024-08-19 13:40 | Outpatient (AMB) | payer OTHER, SELFPAY ==
--- NOTE | 2024-08-19 13:42 | MHC.PC.OV ---
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: No Accompanied by: Self / Same As Patient Allergies No Known Allergies Allergy (Verified 08/19/24 14:21) Medication List - Last Reconciled 08/19/24 by CARLA Brown acetaminophen 2 tabs PO Q4H PRN clonazepam 1 tab PO TID PRN clonazepam 0.5 mg PO BEDTIME olanzapine 1 tab PO QPM olanzapine 15 mg PO QPM Tobacco use date assessed: 08/19/24 Dental Screening Dental Screen Date: 08/19/24 Did you have a dental visit in the last 12 months?: Yes Did you have a dental problem in the last 6 months where you did not have access to dental care?: No Was dental information given to patient?: Patient has dentist HPI PE HPI Details History of Present Illness The patient is a 48-year-old male presenting for a routine wellness visit and management of chronic conditions. The patient has a history of schizophrenia and regularly sees a psychiatrist and psychologist for management. He denies any suicidal or homicidal ideation. Bradycardia has been noted previously, and a full workup was completed (cardiology). The patient denies any symptoms such as shortness of breath, dizziness, or feeling faint. Preventative care measures include a referral for colon cancer screening and ordering of lab work including PSA. Has not smoked long enough to qualify for LDCT, and he vapes now, no cigs. + erectile dysfunction for over a year. I will order a test level and send cialis to try. Health Maintenance - Colon cancer screening referral - Lab work including PSA Social History Review of Systems - General: Denies fever or chills, dizziness - Cardiovascular: Denies chest pain or shortness of breath - Gastrointestinal: Denies abdominal pain, blood in stool, constipation, or diarrhea - Psychiatric: Denies suicidal or homicidal ideation - Genitourinary: Denies urinary issues Physical Exam General: Cooperative, healthy appearing, comfortable, no acute distress and well developed Orientation: Patient oriented x3 Limitations: No limitations Head: Normal to inspection Ears: Hearing grossly normal bilaterally Nose: Normal external nose present Face and sinus: Normal facial exam Eyes: Appearance normal, both eyes and all related structures Neck: Normal visual inspection and Yes full ROM Respiratory: Normal respiratory effort and able to speak in complete sentences. Clear to auscultation bilaterally Cardiovascular: Bradycardia noted. Regular rate and rhythm. Normal S1 and S2 GI: Normal to inspection. Soft to palpation and nontender : Testicles without masses/lesions and no hernias appreciated Skin: No rashes or lesions noted. Skin to lower extremities, especially around shins, with pits related to previous picking history Neuro: Patient oriented x3 Extremities: Normal to inspection Results Plan The patient will be referred for a colon cancer screening as part of preventative care measures. Lab work will be ordered, including a PSA test, to monitor his health status. The patient will undergo an EKG today to further evaluate his bradycardia, despite the absence of symptoms such as shortness of breath or dizziness. Patient was informed and verbally consented to the use of an ambient scribe for clinic note documentation during this visit. Discussion Notes I discussed with the patient the importance of regular screenings and lab work to monitor his health, including a colon cancer screening and PSA test. We also talked about the need for an EKG today to assess his bradycardia, even though he is asymptomatic. WIll also repeat a holter Patient Instructions - Follow up with the scheduled colon cancer screening. - Complete the lab work, including the PSA test, as ordered. - Undergo the EKG today as planned. [facility] Medical History Physical exam Epiploic appendagitis GI bleed Bradycardia Surgical History History of tonsillectomy Family History Father Substance abuse Mother Cancer Maternal Grandmother Cancer Maternal Grandfather Cancer Son No problems noted. Son No problems noted. Daughter No problems noted. Social History Housing: House Alcohol intake: current Alcohol intake frequency: a few times a month Alcohol type: beer Patient Tobacco Use Status: Current everyday Tobacco user Tobacco use type: Smokeless Tobacco e-Cigarette/Vaping Use: Currently Using Second Hand Smoke Exposure: No Use of substances other than those prescribed or required for medical reasons: No service: No Current occupational status: disabled Cognitive needs: No Hearing needs: No Vision needs: Yes Questionnaire PHQ-9 Over the last 2 weeks, how often have you been bothered by any of the following problems? 1. Little interest or pleasure in doing things: more than half the days 2. Feeling down, depressed, or hopeless: nearly every day 3. Trouble falling or staying asleep, or sleeping too much: nearly every day 4. Feeling tired or having little energy: nearly every day 5. Poor appetite or overeating: more than half the days 6. Feeling bad about yourself - or that you are a failure or have let yourself or your family down: not at all 7. Trouble concentrating on things, such as reading the newspaper or watching television: not at all 8. Moving or speaking so slowly that other people could have noticed. Or the opposite - being so fidgety or restless that you have been moving around a lot more than usual: not at all 9. Thoughts that you would be better off or of hurting yourself in some way: not at all Total score: 13 Depression Screening Interpretation: Positive (denies any si or hi) Depression Screening Follow-up: Existing condition and In treatment Depression Screening Done: Yes 33255 - PHQ-9 Billing: Yes Source: Developed by Drs. Eber Morales, Liliane Gerard, Kel Gan and colleagues, with an educational consuelo from [employer]. Thrive Questionnaire Date Thrive assessed: 08/19/24 I am a: Patient What is your living situation today?: I have a steady place to live Within the past 12 months, did the food you bought not last and you didn't have the money to get more?: Never true Within the past 12 months, did you worry whether your food would run out before you got money to buy more?: Never true Do you have trouble paying for medicines?: Yes Do you have trouble getting transportation to medical appointments?: No Do you have trouble paying your heating and electricity bill?: No Do you have trouble taking care of your child, family member or friend?: No Do you have trouble with day-to-day activities such as bathing, preparing meals, shopping, managing finances, etc.?: No Are you currently unemployed and looking for a job?: Yes Are you interested in more education?: No Please select the resources that you would like help with: None Currently or been in a relationship where the following occur: I choose not to answer THRIVE Score: 0 AUDIT C Alcohol Use Questionnaire (AUDIT-C) 1. How often do you have a drink containing alcohol?: 2-4 times a month 2. How many drinks containing alcohol do you have on a typical day when you are drinking?: 3 or 4 3. How often do you have six or more drinks on one occasion?: Less than monthly Total Score: 4 Score Reviewed/Action Taken: Yes FELIX-7 AMB Questionnaire FELIX-7 Date FELIX - 7 assessed: 08/19/24 Feeling nervous, anxious, or on edge: 3 = Nearly every day Not being able to stop or control worryin = More than half the days Worrying too much about different things: 3 = Nearly every day Trouble relaxin = Several days Being so restless that it is hard to sit still: 1 = Several days Becoming easily annoyed or irritable: 3 = Nearly every day Feeling afraid as if something awful might happen: 1 = Several days Total FELIX-7 score (0-4 normal; 5-9 mild; 10-14 moderate; 15-21 severe): 14 Source: Developed by Drs. Eber Morales, Liliane Gerard, Kel Gan and colleagues, with an educational consuelo from [employer] FELIX-7 Assessment Billing FELIX-7 Assessment Tool: FELIX-7 Assessment 82563 Physical exam (Primary Care) Vital Signs: Last Vital Signs Pulse 45 L 08/19/24 13:43 BP 102/68 08/19/24 13:43 Pulse Ox 98 08/19/24 13:43 Oxygen Delivery Method Room Air 08/19/24 13:43 BMI result Body Mass Index 28.4 Tobacco/Smoking Status: Tobacco use Status Tobacco use date assessed 08/19/24 08/19/24 13:47 Patient Tobacco Use Status Current everyday Tobacco 08/19/24 13:55 Tobacco use type Smokeless Tobacco 08/19/24 13:55 e-Cigarette/Vaping Use Currently Using 08/19/24 13:51 PHQ-9: PHQ-9 Score PHQ-9: Total score 13 08/19/24 14:10 Depression Screening Interpretation: Positive (denies any si or hi) Depression Screening Follow-up: Existing condition and In treatment Thrive Assessment: Date of Thrive Assessment Date Thrive assessed 08/19/24 08/19/24 13:47 Currently or been in a relationship where the following occur: I choose not to answer Coding Level of Care Code Est Pt Level 3 (09267) Est Pt Prev Care 40-64y(19763) Diagnoses Screening for colon cancer Z12.11 Physical exam Z00.00 Screening for prostate cancer Z12.5 Sinus bradycardia R00.1 Erectile disorder N52.9 Additional Codes FELIX-7 Assessment Billing - FELIX-7 Assessment Tool: FELIX-7 Assessment 24390 ([id number]) PHQ-9 - 00199 - PHQ-9 Billing: Yes ([id number]) Assessment & Plan Assessment & Plan (1) Screening for colon cancer: Code(s): Z12.11 - Encounter for screening for malignant neoplasm of colon Category: Medical (2) Physical exam: Code(s): Z00.00 - Encounter for general adult medical examination without abnormal findings Category: Medical (3) Screening for prostate cancer: Code(s): Z12.5 - Encounter for screening for malignant neoplasm of prostate Category: Medical (4) Sinus bradycardia: Code(s): R00.1 - Bradycardia, unspecified Category: Medical (5) Erectile disorder: Code(s): N52.9 - Male erectile dysfunction, unspecified Category: Medical Plan . Orders: Orders Complete Blood Count Auto Diff Today Z00.00 - Encounter for general adult medical examination without abnormal findings UA CC w/rflx Micro + Cult Today Z00.00 - Encounter for general adult medical examination without abnormal findings Prostate Specific Antigen Scr Today Z12.5 - Encounter for screening for malignant neoplasm of prostate ECG 3 day holter monitor Today R00.1 - Bradycardia, unspecified Testosterone, Free/Total Today N52.9 - Male erectile dysfunction, unspecified Comprehensive [place]. Panel Fast Today Z00.00 - Encounter for general adult medical examination without abnormal findings TSH reflex Free T4 Today Z00.00 - Encounter for general adult medical examination without abnormal findings Lipid Panel Today Z00.00 - Encounter for general adult medical examination without abnormal findings Referrals Gastroenterology Referral Z12.11 - Encounter for screening for malignant neoplasm of colon Medications: New tadalafil (Cialis) administer approximately 30min before sexual activity; do not use more than 1 dose per 24hrs 5 mg PO DAILY PRN 14 tabs 0RF sexual activity 14 days
[2024-08-19 13:43] VITALS: BP 102/68; PULSE 45; O2SAT 98; BMI 28.4
--- OUTSIDE RECORDS SUMMARY | 2024-08-19 14:29 | XMS_ITS | Clinical Summary ---
Author Organization [facility] Address [address] [place] [address] Care Team Providers Care [place] Specialist Name Role Phone Unavailable Primary Care Provider Unavailabl e Surgical History Surgery Date Site/Laterality Comments TONSILLECTOMY PROCEDURE: HISTORICAL TONSILLECTOMY Medical History Medical History Date Comments PTSD (post-traumatic stress disorder) 06/23/2021 DX:PTSD (post-traumatic stress disorder) [facility] dependence ([facility], [facility] V28) 06/23/2021 DX:Alcohol dependence ([facility]) Bipolar disorder ([facility] V2 4, [facility] V28) 06/23/2021 DX:Bipolar disorder ([facility]) External hemorrhoids 06/23/2021 DX:External hemorrhoids Substance abuse ([facility] V24 , [facility] V28) 06/23/2021 DX:Substance abuse ([facility]); CO MMENT: cocaine, opiates, heroin, suboxone TBI (traumatic brain injury) ([facility] V24, [facility] V28) 06/23/2021 DX:TBI (traumatic brain inju ry) ([facility]) Family History Relation Name Status Comments Father Social History Tobacco Use Types Packs/Day Years Used Date Smoking Tobacco: Never Assessed Sex and Gender Information Value Date Recorded Sex Assigned at Not on file Legal Sex Male 11:03 AM EST Gender Identity Not on file Sexual Orientation Not on file Obstetrics History Last Filed Vital Signs Vital Sign Reading Time Taken Comments Blood Pressure 122/84 06/15/2021 2:39 PM EDT Sit ting L Arm Pulse 53 06/15/2021 2:39 PM EDT Temperature - - Respiratory Rate - - Oxygen Saturation - - Inhaled Oxygen Concentration - - Weight 86.2 kg (190 lb) 06/15/2021 2:39 PM EDT Height 182.9 cm (6') 06/15/2021 2:39 PM EDT Body Mass Index 25.77 06/15/2021 2:39 PM EDT Plan of Treatment Health Maintenance Due Date Last Done Comments DTaP,Tdap,and Td Vaccines (1 - Tdap) 1992 Hepatitis B Vaccines (1 of 3 - 19+ 3-dose series) 1992 Pneumococcal Vaccine: 50+ Ye ars (1 of 1 - PCV) 09/09/2023 Zoster Vaccines (1 of 2) 09/09/2023 COVID-19 Vaccine (1 - 2023-2 5 season) 2023 Influenza Vaccine (#1) 2024 HIB Vaccines Aged Out No longer eligi ble based on patient's age to complete this topic HPV Vaccines Aged Out No longer eligi ble based on patient's age to complete this topic Hepatitis A Vaccines Aged Out No long er eligible based on patient's age to complete this topic IPV Vaccines Aged Out No longer eligi ble based on patient's age to complete this topic MMR Vaccines Aged Out No longer eligi ble based on patient's age to complete this topic Meningococcal ACWY Vaccine Aged Out N o longer eligible based on patient's age to complete this topic Meningococcal B Vaccine Aged Out No l onger eligible based on patient's age to complete this topic RSV Immunization Patients Un wendy 20 months Aged Out No longer eligible b ased on patient's age to complete this topic Varicella Vaccines Aged Out No longer eligible based on patient's age to complete this topic
== END 2024-08-19 14:30 | disposition home or self-care (01) ==
LOC: HO.HMCC 13:40
PROVIDERS: PCP Nurse Practitioner Family; Visit Provider Nurse Practitioner Family
DX: Z00.00 Encounter for general adult medical examination without abnormal findings (principal); N52.9 Male erectile dysfunction, unspecified; R00.1 Bradycardia, unspecified; Z12.11 Encounter for screening for malignant neoplasm of colon; Z12.5 Encounter for screening for malignant neoplasm of prostate

== ENCOUNTER → 2024-08-19 13:40 | Outpatient (BNVA) | payer OTHER, SELFPAY | PROVIDERS: PCP Nurse Practitioner Family; Visit Provider Nurse Practitioner Family | DX: Z00.00 Encounter for general adult medical examination without abnormal findings (principal); R00.1 Bradycardia, unspecified; N52.9 Male erectile dysfunction, unspecified; Z13.31 Encounter for screening for depression; Z13.30 Encounter for screening examination for mental health and behavioral disorders, unspecified | CPT/HCPCS: 96127; 99212; 99396 ==

== ENCOUNTER 2024-08-21 08:02 | Outpatient (REF) | payer OTHER, SELFPAY ==
--- OUTSIDE RECORDS SUMMARY | 2024-08-21 08:07 | XMS_ITS | Clinical Summary ---
Author Organization [facility] Address [address] [place] [address] Care Team Providers Care Assistant Producer Name Role Phone Unavailable Primary Care Provider Unavailabl e Surgical History Surgery Date Site/Laterality Comments TONSILLECTOMY PROCEDURE: HISTORICAL TONSILLECTOMY Medical History Medical History Date Comments PTSD (post-traumatic stress disorder) 06/23/2021 DX:PTSD (post-traumatic stress disorder) Alcohol dependence ([facility] V24, [facility] V28) 06/23/2021 DX:Alcohol dependence ([facility]) Bipolar disorder ([facility] V2 4, [facility] V28) 06/23/2021 DX:Bipolar disorder ([facility]) External hemorrhoids 06/23/2021 DX:External hemorrhoids Substance abuse ([facility] V24 , [facility] V28) 06/23/2021 DX:Substance abuse ([facility]); CO MMENT: cocaine, opiates, heroin, suboxone TBI (traumatic brain injury) ([facility] V24, [facility] V28) 06/23/2021 DX:TBI (traumatic brain inju ry) ([facility]) Family History Relation Name Status Comments Father [...]
[2024-08-21 10:36] LABS: Appearance Urine Clear; Glucose Urine UA Negative (Negative); MANUAL DIFF FLAG NO; PH 5.5 (5.0-9.0); Specific Gravity - Urine 1.020 (1.005-1.025)
[2024-08-21 10:42] LABS: Hematocrit 41.6 % (42.0-52.0); Hemoglobin 14.5 g/dl (14.0-18.0); Imm Gran Abs Auto 0.02 X10*3/uL (0.00-0.03); Imm Gran Pct Auto 0.4 % (0.0-0.4); Lymphocytes Absolute Auto 1.7 X10*3/uL (1.2-4.9); Mean Corpuscular HGB Conc 34.9 g/dl (31.0-36.0); Mean Corpuscular Hemoglobin 31.6 pg (27.0-33.0); Mean Corpuscular Volume 90.6 fL (80.0-98.0); NRBC Abs Auto 0.000 X10*3/uL (0.0-0.012); NRBC Pct Auto 0.0 /100WBC (0.0-0.2); Platelet Count 220 X10*3/uL (160-400); Red Blood Count 4.59 X10*6/uL (4.60-5.80); White Blood Count 5.2 X10*3/uL (4.8-10.8)
[2024-08-21 11:23] LABS: Alanine Aminotransferase 23 U/L (0-40); Albumin Level 4.5 g/dL (3.5-5.0); Alkaline Phosphatase 69 U/L (39-117); Anion Gap 13 (12-20); Aspartate Amino Transferase 32 U/L (5-37); Blood Urea Nitrogen 15 mg/dL (9-16); Calcium 8.9 mg/dL (8.4-10.2); Carbon Dioxide 26 mmol/L (22-29); Chloride 105 mmol/L (96-108); Cholesterol 198 mg/dL (<200); Estimated Glomerular Filt Rate > 60; HDL Cholesterol 47 mg/dL (>40); Potassium 4.0 mmol/L (3.3-5.1); Sodium 140 mmol/L (135-145); Total Protein 7.2 g/dL (6.5-8.0); Triglycerides 120 mg/dL (<150)
[2024-08-26 19:53] LABS: Testosterone, Free 46.9 pg/mL (35.0-155.0)
== END 2024-08-21 08:03 | disposition home or self-care (01) ==
LOC: HO.HMGCLDS 08:02
PROVIDERS: PCP Nurse Practitioner Family; Visit Provider Nurse Practitioner Family
DX: Z00.00 Encounter for general adult medical examination without abnormal findings (principal); Z12.5 Encounter for screening for malignant neoplasm of prostate; N52.9 Male erectile dysfunction, unspecified
CPT/HCPCS: 36415; 80053; 80061; 81003; 84153; 84402; 84403; 84443; 85025

== ENCOUNTER → 2024-09-21 12:59 | Outpatient (REF) | payer OTHER, SELFPAY ==
--- NOTE | 2024-09-21 13:02 | HM_ITS ---
Conclusion: 1. Patient was monitored for total period of 3 days 2. Baseline was normal sinus rhythm with average heart rate of 52 beats per minute 3. Frequent sinus bradycardia noted with 71% of the time heart rate below 60 beats per minute with lowest heart rate of 27 beats per minute noted at 07:19 with no significant pauses 4. Occasional PACs noted without any significant tachyarrhythmias 5. One 3 beat [place] of accelerated idioventricular rhythm at 72 beats per minute noted 6. No patient reported events MTDD
--- OUTSIDE RECORDS SUMMARY | 2024-09-21 13:06 | XMS_ITS | Clinical Summary ---
Author Organization [facility] Address [address] [place] [address] Care Team Providers Care Hourly Manager Name Role Phone Unavailable Primary Care Provider Unavailabl e Surgical History Surgery Date Site/Laterality Comments TONSILLECTOMY PROCEDURE: HISTORICAL TONSILLECTOMY Medical History Medical History Date Comments PTSD (post-traumatic stress disorder) 06/23/2021 DX:PTSD (post-traumatic stress disorder) Alcohol dependence ([facility] V24, [facility] V28) 06/23/2021 DX:Alcohol dependence ([facility]) Bipolar disorder ([facility] V2 4, [facility] V28) 06/23/2021 DX:Bipolar disorder ([facility]) External hemorrhoids 06/23/2021 DX:External hemorrhoids Substance abuse ([facility] V24 , [facility] V28) 06/23/2021 DX:Substance abuse ([facility]); CO MMENT: cocaine, opiates, heroin, suboxone TBI (traumatic brain injury) ([facility] V24, [facility] V28) 06/23/2021 DX:TBI (traumatic brain inju ry) ([facility]) Family History Relation Name Status Comments Father [...] Vaccine (1 - 2023-2 5 season) 2023 Depression Screening 02/12/2024 Influenza Vaccine (#1) 2024 HIB Vaccines Aged [...]
== END ==
LOC: HO.CARD 12:59
PROVIDERS: PCP Nurse Practitioner Family; Visit Provider Nurse Practitioner Family
DX: R00.1 Bradycardia, unspecified (principal)
CPT/HCPCS: 93242

== ENCOUNTER → 2024-09-21 13:02 | Outpatient (BNV) | payer OTHER, SELFPAY | PROVIDERS: PCP Nurse Practitioner Family; Visit Provider Internal Medicine Cardiovascular Disease | DX: R00.1 Bradycardia, unspecified (principal) | CPT/HCPCS: 93244 ==